=== PATIENT | female | born 1985 | race Caucasian/White ===

== ENCOUNTER → 2019-09-30 12:00 | Outpatient (BNVA) | payer MEDICAID, SELFPAY | PROVIDERS: Family Provider Family Medicine; PCP Family Medicine; Visit Provider Nurse Practitioner | DX: K12.2 Cellulitis and abscess of mouth (principal) | CPT/HCPCS: 85025 ==

== ENCOUNTER → 2020-02-18 14:19 | Outpatient (BNVA) | payer MEDICAID, SELFPAY | PROVIDERS: Family Provider Family Medicine; PCP Family Medicine; Visit Provider Nurse Practitioner Family | DX: Z11.59 Encounter for screening for other viral diseases (principal); J02.9 Acute pharyngitis, unspecified | CPT/HCPCS: 87071; 87635; 87880 ==

== ENCOUNTER 2020-05-05 14:07 | Emergency (ER) | payer MEDICAID, SELFPAY ==
[2020-05-05 14:00] VITALS: BP 113/83; PULSE 96; RESP 16; TEMP 36.9; O2SAT 100; BMI 30.1
--- NOTE | 2020-05-05 14:40 | CT_ITS ---
WS: [id number] CT HEAD NONCONTRAST HISTORY: worst headache of life, concern for SAH TECHNIQUE: Contiguous axial imaging performed through the brain in 2.5 mm imaging. Bone and soft tiss ue windows. Sagittal and coronal reformats reviewed. All CT scans at [facility] use at le ast one of these dose optimization techniques: automated exposure control; mA and/or kV adjustment pe r patient size (includes targeted exams where dose is matched to clinical indication); or iterative r econstruction. DLP: 768.77 mGy.cm COMPARISON: 08/12/2012 No acute intracranial hemorrhage, midline shift or mass effect. No atrophy or prior infarcts or herniation. Ventricles: Normal size with no hydrocephalus. Paranasal sinuses: Mild mucosal thickening in the ethmoid, sphenoid and maxillary sinuses. No air-flu id levels. Mastoid air cells: Well pneumatized. Calvarium and scalp: Skull is intact with no soft tissue edema or swelling. CT/CT head wo con* [id number] IMPRESSION: 1. No acute intracranial hemorrhage or edema. 2. Very minimal mucoperiosteal sinus disease.
[2020-05-05] MEDS: metoclopramide 5 mg/mL SDV 2 mL 10 MG IVP (14:47)
[2020-05-05] MEDS: diphenhydrAMINE 50 mg/mL SDV 1mL IVP (14:47)
[2020-05-05] MEDS: sodium chloride 0.9% 1,000 ML 999 ML IV (14:48)
[2020-05-05 14:59] VITALS: BP 123/91; PULSE 85; RESP 18; O2SAT 96
[2020-05-05 15:36] VITALS: TEMP 37
[2020-05-05] MEDS: ketorolac 30 mg/mL INJ 15 MG IVP (16:14)
--- NOTE | 2020-05-12 18:12 | W.ED.HA ---
HPI - Headache General: Chief Complaint: Headache Stated Complaint: HEADACHE AND NAUSEA History of Present Illness: HPI Narrative: Patient is a 34-year-old female seen for headache. She describes as 9 of 10, all-encompassing, throbbing, similar to prior migraines, only worse than usual. She has tried taking Tylenol at home without help. She denies neck pain, fever, pain with motion of the neck, visual disturbance, and only has mild nausea with no vomiting associated. She has no other acute complaints. Review of Systems General: Reports: 10 or more systems reviewed and unremarkable except in HPI and below PFSH ED PFSH: Medical History Chronic migraine Fibromyalgia History of deep venous thrombosis (DVT) of distal vein of right lower extremity 2012 History of kidney stones History of pulmonary embolus (PE) 2013 Surgical History History of cholecystectomy History of hysterectomy Family History Other Cancer Diabetes Heart disease Hypertension Thyroid condition Social History Smoking and tobacco status: never smoked Second hand smoke exposure: No Alcohol intake: never Desire information about alcohol rehabilitation?: No Counseling given: No Desire information about substance/drug rehabilitation?: No Counseling given: No Adopted: No Caregiver/support person: No Lives independently: Yes Household members: spouse Housing: House Marital status: Number of children: 3 service: No Current occupational status: employed Current occupation: [id number] History of recent travel: No Current gender identity: Female Physical Exam Const: COMMON NORMALS: no acute distress, patient oriented x3 and alert HENMT: COMMON NORMALS: normocephalic and atraumatic HEAD & SCALP: normocephalic and atraumatic Eye: COMMON NORMALS: Equal, round and reactive pupils present, EOMs intact bilaterally and no scleral icterus PUPIL: Yes Equal, round and reactive pupils present Neck/C-Spine: COMMON NORMALS: full ROM, no lymphadenopathy and no meningeal signs GENERAL: Yes normal visual inspection Resp: COMMON NORMALS: normal respiratory effort and No retractions Cardio: COMMON NORMALS: regular rate, regular rhythm and No murmurs present (Cardio) RATE: regular rate RHYTHM: regular rhythm GI: COMMON NORMALS: Normal to inspection, nondistended, normoactive bowel sounds present, Soft to palpation and non-tender PALPATION: Yes Soft to palpation Neuro: COMMON NORMALS: patient oriented x3 SENSORIUM/ORIENTATION: Yes alert MENINGEAL SIGNS: Yes no meningeal signs Skin: COMMON NORMALS: no rashes or lesions noted GENERAL SKIN EXAM: no rashes or lesions noted Course Vital Signs: Vital signs: Vital Signs Temperature 98.6 F 05/05/20 15:36 Pulse Rate 85 05/05/20 14:59 Respiratory Rate 18 05/05/20 14:59 Blood Pressure 123/91 05/05/20 14:59 Pulse Oximetry 96 05/05/20 14:59 MDM - Headache MDM Narrative: Medical decision making narrative: Patient remained hemodynamically stable through ED course. Headache went from a 9 to a 3 following fluids and IV medication. I do not suspect intracranial hemorrhage, meningitis, or any other emergent process warranting further work-up at this time. She was discharged home in stable and improved condition felt to primary care today. 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
== END 2020-05-05 16:32 | disposition home or self-care (01) ==
PROVIDERS: Emergency Provider Student in an Organized Health Care Education/Training Program; PCP Family Medicine
DX: R51.9 Headache, unspecified (principal); Z86.711 Personal history of pulmonary embolism
CPT/HCPCS: 12345; 70450; 96374; 96375; 99282; 99283; J1200; J1885; J2765; J7030

== ENCOUNTER → 2020-05-09 13:25 | Outpatient (BNVA) | payer MEDICAID, SELFPAY | PROVIDERS: PCP Family Medicine; Visit Provider Nurse Practitioner | DX: Z20.828 Contact with and (suspected) exposure to other viral communicable diseases (principal) | CPT/HCPCS: 87635 ==

== ENCOUNTER 2020-06-05 20:12 | Emergency (ER) | payer BC, MEDICAID, SELFPAY ==
[2020-06-05 20:30] VITALS: BP 124/82; PULSE 73; RESP 18; TEMP 36.4; O2SAT 98; BMI 28.3
--- NOTE | 2020-06-05 20:53 | W.ED.GENADLT ---
HPI - General Adult General: Chief complaint: General Medical Stated complaint: insect (spider)bite on chest Time Seen by Provider: 06/05/20 20:41 Source: patient Mode of arrival: ambulatory Limitations: no limitations History of Present Illness: HPI narrative: 34-year-old pleasant female presents to the emergency department with 1 day history of redness swelling to the right chest wall. She reports noted a spider in her bed 1 day prior to the onset of skin complaint. She questions if she has a spider bite. She reports itching, redness, swelling with burning to the area. She denies fever chills nausea vomiting. She reports has taken ibuprofen, Benadryl and Tylenol for the discomfort. Reports moved to her old home, an old farm house, 2 months ago, reports infestation of brown recluse spiders, fleas and bedbugs, has contacted [employer] who treated the home. Onset (ago): day(s) (2) Location: chest Severity: moderate Quality: burning Pain Consistency: constant Relieving factors: medication Exacerbating factors: other (When clothing touches the area) Associated symptoms: Reports rash; Deny chest pain, diaphoresis, dyspnea, headache(s), nausea, palpitations or vomiting Treatments prior to arrival: NSAID Review of Systems General: Reports: 10 or more systems reviewed and unremarkable except in HPI and below Const: Denies: fever(s), chills or diaphoresis Eyes: Denies: blurry vision or eye redness ENMT: Denies: throat pain, dental pain or disequilibrium Card: Denies: chest pain, palpitations or irregular heart rhythm Resp: Denies: dyspnea, productive cough, non-productive cough or wheezing GI: Denies: abdominal pain, nausea or vomiting : Denies: difficulty voiding or dysuria Musc: Denies: neck pain, back pain, joint pain, joint swelling or joint stiffness Skin/Breast: Reports: rash, pruritus, erythema, skin tenderness and changes in skin color Neuro: Denies: headache(s), weakness in extremities or behavioral changes Psych: Denies: anxiety or depression Gilberto/Lymph: Denies: easy bruising [facility] ED PFSH: Medical History (Updated 06/05/20 @ 22:47 by CAROLYN Spence) Chronic migraine Fibromyalgia History of deep venous thrombosis (DVT) of distal vein of right lower extremity 2012 History of kidney stones History of pulmonary embolus (PE) 2013 Surgical History History of cholecystectomy History of hysterectomy Family History Other Cancer Diabetes Heart disease Hypertension Thyroid condition Social History Smoking and tobacco status: never smoked Second hand smoke exposure: No Alcohol intake: never Desire information about alcohol rehabilitation?: No Counseling given: No Desire information about substance/drug rehabilitation?: No Counseling given: No Adopted: No Caregiver/support person: No Lives independently: Yes Household members: spouse Housing: House Marital status: Number of children: 3 service: No Current occupational status: employed Current occupation: [employer] History of recent travel: No Current gender identity: Female Physical Exam Const: COMMON NORMALS: no acute distress, patient oriented x3, healthy appearing and alert GENERAL APPEARANCE: cooperative, comfortable and well hydrated HENMT: COMMON NORMALS: normocephalic, Normal external nose present and moist oral mucous membranes HEAD & SCALP: normocephalic NOSE: Normal external nose present Eye: COMMON NORMALS: Equal, round and reactive pupils present and EOMs intact bilaterally GENERAL EYE: appearance normal, both eyes and all related structures PUPIL: Yes Equal, round and reactive pupils present Neck/C-Spine: COMMON NORMALS: full ROM and no lymphadenopathy GENERAL: Yes normal visual inspection and Yes trachea midline CERVICAL SPINE: Yes cervical ROM normal Lymph: LYMPHATIC: no lymphadenopathy noted Chest: COMMONS NORMALS: normal inspection of the chest Resp: COMMON NORMALS: normal respiratory effort, No retractions, No use of accessory muscles and clear to auscultation bilaterally EFFORT & INSPECTION: Yes able to speak in complete sentences AUSCULTATION: clear to auscultation bilaterally Cardio: COMMON NORMALS: regular rate, regular rhythm, S1 normal heart sound present, S2 normal heart sound present and Peripheral pulses 2+ throughout RATE: regular rate RHYTHM: regular rhythm HEART SOUNDS: S1 normal heart sound present and S2 normal heart sound present PERIPHERAL PULSES: Peripheral pulses 2+ throughout GI: COMMON NORMALS: Normal to inspection, nondistended, normoactive bowel sounds present, Soft to palpation and non-tender INSPECTION: Yes normal to inspection PALPATION: Yes Soft to palpation : COMMON NORMALS: Yes no CVA tenderness BLADDER/KIDNEY EXAM: Yes no CVA tenderness Back/Pelvis: COMMON NORMALS: no CVA tenderness and thoracic and lumbar spine normal to inspection Extremity: COMMON NORMALS: normal to inspection, full ROM, capillary refill normal, no clubbing, cyanosis or edema, no calf tenderness and no pedal edema GENERAL: Yes normal exam except as noted Neuro: COMMON NORMALS: patient oriented x3 and no focal motor deficits SENSORIUM/ORIENTATION: Yes alert GAIT: Yes Normal gait present MOTOR EXAM: 5/5 motor strength present throughout Psych: COMMON NORMALS: mental status grossly normal, Normal thought process present and cooperative ACTIVITY/MOTOR BEHAVIOR: Yes appropriate eye contact THOUGHT PROCESS: Normal thought process present Skin: COMMON NORMALS: no rashes or lesions noted and turgor normal SKIN IMAGES (FEMALE): 1. Puncture wound to the anterior chest wall, with slight induration 3 cm x 2.5 cm area surrounding, erythema surrounds the area 10 cm x 10 cm GENERAL SKIN EXAM: no rashes or lesions noted and turgor normal Course Vital Signs: Vital signs: Vital Signs Temperature 97.5 F L 06/05/20 20:30 Pulse Rate 87 06/05/20 21:21 Respiratory Rate 16 06/05/20 21:21 Blood Pressure 132/76 06/05/20 21:21 Pulse Oximetry 98 06/05/20 21:21 [facility] - General Adult Imaging Data^: US: Radiologist's impression: [address] [address] Ultrasound Report Signed Patient: Salima Bone Unit #: [id number] : 1985 Age/Sex: 34 / F ADM Date: 06/05/20 Loc: ER Room/Bed: Attending Dr: Ordering Provider/Ordering MD: Waleska Cedeño Date of Service: 06/05/20 Procedure(s): US soft tissue/extremity [id number] Accession Number(s): [id number] Report Number: [id number] PROCEDURE INFORMATION: Exam: US Unlisted Ultrasound Procedure Exam date and time: 06/05/2020 8:53 PM Age: 34 years old Clinical indication: Injury or trauma; Injury: Spider bite x 3 days; Patient status: Conscious; Patient HX: Redness and warmth to area around spider bite; Additional info: Spider bite superior to right breast, ? abscess. TECHNIQUE: Imaging protocol: Unlisted ultrasound procedure (eg, diagnostic, interventional). COMPARISON: No relevant prior studies available. FINDINGS: Procedural imaging: In the region of the erythema and warmth, there is no abnormal fluid collection or mass. US/US soft tissue/extremity [id number] IMPRESSION: There is no evidence for abscess or mass in the region of interest in the superior aspect of the right breast. Dictated By: Armen Bee MD Signed By: Armen Bee MD Signed Date/Time: 06/05/202219 DD/ 18 Discharge Plan Discharge Patient Disposition: Home Clinical Impression: Allergic reaction to insect bite Insect bite Qualifiers: Encounter type: initial encounter Site of insect bite: thoracic wall Front or back of thoracic wall: front Thoracic wall location detail: right Qualified Code(s): S20.361A - Insect bite (nonvenomous) of right front wall of thorax, initial encounter Cellulitis Qualifiers: Site of cellulitis: trunk Site of cellulitis of trunk: chest wall Qualified Code(s): L03.313 - Cellulitis of chest wall Condition: Stable Prescriptions: New Bactrim DS 800-160 mg tablet 1 tab PO BID 7 Days Qty: 14 RF: 0 Medrol (Haun) 4 mg tablets,dose pack See Rx Instructions .ROUTE .COMPLEX Qty: 21 RF: 0 Zyrtec 10 mg capsule 10 mg PO DAILY Qty: 10 RF: 0 Discharge Orders: Discharge ED (Routine); Ordered 06/05/20 Ordered By: Waleska Cedeño Referrals: Dannie Yeung MD [Primary Care Provider] - Discharge Diet: Usual diet Discharge Activity: Resume usual activity Patient Instructions: Allergic Reaction, Cellulitis (ED), Insect Bite or Sting (ED) Activity Restrictions/Additional Instructions: Take medication as prescribed, even if feeling better May continue Benadryl as needed for breakthrough itching Cool compresses to the area to help with warmth and swelling, never to apply ice directly to the skin Follow-up with your primary care provider in 2 days without fail for reevaluation to ensure you are improving Return to the emergency department if you develop worsening symptoms such as shortness of breath, increased pain or fever. 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
[2020-06-05 21:21] VITALS: BP 132/76; PULSE 87; RESP 16; O2SAT 98
[2020-06-05] MEDS: predniSONE 20 mg Tablet PO (21:21)
[2020-06-05] MEDS: sulfamethoxazole-trimeth DS 160-800 mg Tablet 1 TAB PO (23:09)
[2020-06-05] MEDS: cetirizine 10 mg Tablet PO (23:09)
[2020-06-05 23:10] VITALS: BP 132/85; PULSE 78; RESP 18; O2SAT 98
== END 2020-06-05 23:11 | disposition home or self-care (01) ==
PROVIDERS: Emergency Provider Nurse Practitioner Family; PCP Family Medicine
DX: S20.361A Insect bite (nonvenomous) of right front wall of thorax, initial encounter (principal); L03.313 Cellulitis of chest wall; T63.481A Toxic effect of venom of other arthropod, accidental (unintentional), initial encounter; W57.XXXA Bitten or stung by nonvenomous insect and other nonvenomous arthropods, initial encounter
CPT/HCPCS: 12345; 76882; 99281; 99283; J7512

== ENCOUNTER → 2021-04-12 15:15 | Outpatient (BNVA) | payer BC, MEDICAID, SELFPAY | PROVIDERS: PCP Family Medicine; Visit Provider Nurse Practitioner Family | DX: Z20.822 Contact with and (suspected) exposure to COVID-19 (principal) | CPT/HCPCS: 87635 ==

== ENCOUNTER → 2021-10-31 17:11 | Outpatient (BNVA) | payer BC, MEDICAID, SELFPAY | PROVIDERS: PCP Family Medicine; Visit Provider Family Medicine | DX: M79.7 Fibromyalgia (principal); R53.83 Other fatigue; R63.5 Abnormal weight gain | CPT/HCPCS: 80053; 80061; 83036; 84443; 85025 ==

== ENCOUNTER → 2022-04-27 10:03 | Outpatient (BNVA) | payer BC, MEDICAID, SELFPAY | PROVIDERS: PCP Family Medicine; Visit Provider Family Medicine | DX: R63.5 Abnormal weight gain (principal); M25.50 Pain in unspecified joint; M79.7 Fibromyalgia; G43.909 Migraine, unspecified, not intractable, without status migrainosus | CPT/HCPCS: 80053; 85025; 85651; 86038; 86431 ==

== ENCOUNTER 2022-05-12 13:12 | Emergency (ER) | payer BC, MEDICAID, SELFPAY ==
[2022-05-12 13:40] VITALS: BP 122/81; PULSE 104; RESP 18; TEMP 36.7; O2SAT 98; BMI 37.5
--- NOTE | 2022-05-12 13:50 | ED_ITS ---
HPI - Abdominal Pain General: Chief Complaint: Abdominal Pain Stated Complaint: abd pain Time Seen by Provider: 05/12/22 13:50 History of Present Illness: Ms. Wiggins is a 36-year-old lady with complex past medical history presenting to the emergency department due to left lower quadrant abdominal pain. Onset of symptoms was without known specific provoking event yesterday afternoon. She reports sudden onset of symptoms which have been constant since onset. Describes a stabbing sensation which at times worsens however has not gone away. No other associated GI symptoms. No vaginal discharge or abnormal bleeding. Patient has a history of hysterectomy. Intensity symptoms is moderate to severe. No other specific changes in health, exacerbating, or alleviating factors identified. Onset (ago): day(s) Pain Consistency: constant Location: LLQ Quality: stabbing Radiation: none Migration to: no migration Exacerbating factors: movement Relieving factors: nothing Associated Symptoms: Reports no associated symptoms Review of Systems General: Reports: 10 or more systems reviewed and unremarkable except in HPI and below PFSH ED PFSH: Medical History Chronic migraine Fibromyalgia History of deep venous thrombosis (DVT) of distal vein of right lower extremity 2012 History of kidney stones History of pulmonary embolus (PE) 2013 Surgical History History of cholecystectomy History of hysterectomy Family History Other Cancer Diabetes Heart disease Hypertension Thyroid condition Social History Smoking and tobacco status: never smoked Second hand smoke exposure: No Alcohol intake: never Desire information about alcohol rehabilitation?: No Counseling given: No Desire information about substance/drug rehabilitation?: No Counseling given: No Adopted: No Caregiver/support person: No Lives independently: Yes Household members: spouse Housing: House Marital status: Number of children: 3 service: No Current occupational status: employed Current occupation: [employer] History of recent travel: No Current gender identity: Female Physical Exam 2 Const: COMMON NORMALS: alert GENERAL APPEARANCE: cooperative and well developed HENMT: COMMON NORMALS: normocephalic and atraumatic HEAD & SCALP: normocephalic and atraumatic Eye: COMMON NORMALS: conjunctivae normal CONJUNCTIVA: Yes conjunctivae normal SCLERA: sclerae normal Neck/C-Spine: COMMON NORMALS: supple GENERAL: Yes trachea midline Resp: COMMON NORMALS: clear to auscultation bilaterally EFFORT & INSPECTION: Yes able to speak in complete sentences AUSCULTATION: clear to auscultation bilaterally Cardio: COMMON NORMALS: regular rhythm RATE: tachycardic RHYTHM: regular rhythm GI: COMMON NORMALS: Soft to palpation PALPATION: Yes Soft to palpation, Yes Tenderness to palpation present (GI) Details: LLQ, No Guarding due to palpation present (GI) and No Rigid due to palpation Extremity: GENERAL: Yes normal exam except as noted and No edema Neuro: COMMON NORMALS: moves all extremities SENSORIUM/ORIENTATION: Yes alert and No Orientation impaired Psych: COMMON NORMALS: mental status grossly normal and Normal thought process present THOUGHT PROCESS: Normal thought process present Course Vital Signs: Vital signs: Vital Signs Temperature 98.0 F 05/12/22 13:40 Pulse Rate 98 05/12/22 17:08 Respiratory Rate 16 05/12/22 17:08 Blood Pressure 139/81 05/12/22 17:08 Pulse Oximetry 99 05/12/22 17:08 Oxygen Delivery Me thod 05/12/22 16:41 MDM - Abdominal Pain Medical Decision Making 36-year-old lady presenting with abdominal symptoms. Exam as above. Though patient does appear uncomfortable there is no evidence of acute surgical abdomen on physical exam. Labs notable for minimal leukocytosis, normal hemoglobin. Metabolic panel with normal electrolytes, transaminitis of uncertain etiology. There is no right upper quadrant tenderness, Navarro's is negative. Patient does appear to have a urinary tract infection. Ultrasound notable for ovarian cysts, need for follow-up discussed with patient. Renal ultrasound without evidence of hydronephrosis. Patient moderately improved with treatment including antibiotics. Most likely etiology of symptoms is urinary tract infection. The results of ED evaluation were discussed with the patient including prescriptions and/or symptomatic cares (if applicable) including appropriate and responsible use, followup plan, and return precautions. The patient verbalized understanding and felt safe for discharge. Medical Records I reviewed the patient's medical records. Lab Data I reviewed the patient's lab results. 05/12/22 14:14 05/12/22 14:14 Labs/Radiology: Radiology Impressions Pelvis Ultrasound 05/12/22 14:58 IMPRESSION: 1. Bilateral ovarian cysts probably physiological in nature. Recommend a repeat ultrasound exam in 2-3 months for confirmation. 2. No evidence of ovarian torsion. 3. Prior hysterectomy. Renal Ultrasound 05/12/22 14:58 IMPRESSION: Unremarkable kidneys and bladder. Laboratory Results WBC 10.2 10^3/uL (4.0-10.0) H 05/12/22 14:14 RBC 4.24 10^6/uL (4.1-5.3) 05/12/22 14:14 Hgb 13.0 g/dL (11.5-15.3) 05/12/22 14:14 Hct 39.9 % (37.0-47.0) 05/12/22 14:14 MCV 94.1 fl (81-99) 05/12/22 14:14 MCH 30.7 pg (28.0-34.0) 05/12/22 14:14 MCHC 32.6 g/dL (30.0-36.0) 05/12/22 14:14 RDW 13.3 % (12.1-15.1) 05/12/22 14:14 Plt Count 325 10^3/cmm (130-400) 05/12/22 14:14 MPV 8.6 fL (7.4-10.4) 05/12/22 14:14 Neut % (Auto) 57.3 % 05/12/22 14:14 Lymph % (Auto) 29.1 % 05/12/22 14:14 [place] % (Auto) 8.7 % 05/12/22 14:14 Eos % (Auto) 3.4 % 05/12/22 14:14 Baso % (Auto) 0.6 % 05/12/22 14:14 Neut # (Auto) 5.83 10^3/uL (1.8-7.7) 05/12/22 14:14 Lymph # (Auto) 3.0 10^3/uL (0.8-4.8) 05/12/22 14:14 [place] # (Auto) 0.9 10^3/uL (0.2-0.9) 05/12/22 14:14 Eos # (Auto) 0.4 10^3/uL (0.0-0.8) 05/12/22 14:14 Baso # (Auto) 0.1 10^3/uL (0.0-0.1) 05/12/22 14:14 Nucleated RBC % (auto) 0 % 05/12/22 14:14 Nucleated RBCs # 0.0 /100WBC 05/12/22 14:14 Sodium 138 mmol/L (136-145) 05/12/22 14:14 Potassium 3.6 mmol/L (3.5-5.1) 05/12/22 14:14 Chloride 102 mmol/L (98-107) 05/12/22 14:14 Carbon Dioxide 26 mmol/L (22-29) 05/12/22 14:14 Anion Gap 13.6 (5-19) 05/12/22 14:14 BUN 4 mg/dL (6-20) L 05/12/22 14:14 Creatinine 0.5 mg/dL (0.5-0.9) 05/12/22 14:14 GFR Calculation 140.4 mL/min (90-130) H 05/12/22 14:14 Glucose 83 mg/dL (65-115) 05/12/22 14:14 Calculated Osmolality 282 mOsm/kg (285-295) L 05/12/22 14:14 Calcium 9.5 mg/dL (8.5-10.5) 05/12/22 14:14 Total Bilirubin 0.2 mg/dL (0.15-1.2) 05/12/22 14:14 AST 65 U/L (0-32) H 05/12/22 14:14 ALT 61 U/L (0-33) H 05/12/22 14:14 Alkaline Phosphatase 106 U/L (35-105) H 05/12/22 14:14 Total Protein 7.5 g/dL (6.6-8.7) 05/12/22 14:14 Albumin 4.0 g/dL (3.5-5.2) 05/12/22 14:14 Globulin 3.5 g/dL (1.3-4.6) 05/12/22 14:14 Lipase 16 U/L (13-60) 05/12/22 14:14 Urine Color Dark yellow (Yellow) 05/12/22 14:06 Urine Appearance Clear (CLEAR) 05/12/22 14:06 Urine pH 5 (5-7) 05/12/22 14:06 Ur Specific [place] 1.020 (1.005-1.030) 05/12/22 14:06 Urine Protein Trace (Negative) 05/12/22 14:06 Urine Glucose (UA) Norm (Normal) 05/12/22 14:06 Urine Ketones 1+ (Negative) H 05/12/22 14:06 Urine Blood 2+ (Negative) H 05/12/22 14:06 Urine Nitrate Positive (Negative) H 05/12/22 14:06 Urine Bilirubin Neg (Negative) 05/12/22 14:06 Urine Urobilinogen 1 mg/dL (Negative) H 05/12/22 14:06 Ur Leukocyte Esterase 2+ (Negative) H 05/12/22 14:06 Urine RBC 0-4 /hpf (0-2) H 05/12/22 14:06 Urine WBC 25-40 /hpf (0-5) H 05/12/22 14:06 Ur Squamous Epith Cells 0-4 /hpf (0-5) H 05/12/22 14:06 Amorphous Sediment Not Reportable 05/12/22 14:06 Urine Bacteria 1+ /hpf (NONE) H 05/12/22 14:06 Urine Mucus Trace /hpf 05/12/22 14:06 Discharge Plan Discharge Patient Disposition: Home Clinical Impression: UTI (urinary tract infection), Bilateral ovarian cysts, Abnormal transaminases Condition: Stable Prescriptions: New cephalexin 500 mg capsule 500 mg PO QID 10 Days Qty: 40 0RF Pyridium 100 mg tablet 100 mg PO Q8H PRN (Reason: bladder spasms) Qty: 6 0RF oxycodone 5 mg capsule 5 mg PO Q4H PRN (Reason: pain) Qty: 6 0RF No Action albuterol sulfate [ProAir HFA] 90 mcg/actuation HFA aerosol inhaler 2 puff inhalation QID PRN (Reason: shortness of breath or wheezing) Qty: 6.7 2RF budesonide-formoterol [Symbicort] 160-4.5 mcg/actuation HFA aerosol inhaler 2 puff inhalation BID Qty: 10.2 2RF Paxlovid (EUA) 150 mg x 2- 100 mg tablet See Rx Instructions PO .COMPLEX Qty: 30 0RF Rx Instructions: take TWO 150 mg tablets of nirmatrelvir with ONE 100 mg tablet of ritonavir twice daily for 5 days PO phentermine [Adipex-P] 37.5 mg tablet 37.5 mg PO DAILY Qty: 30 0RF Rx Instructions: must administer 30 minutes before or 1-2 hours after breakfast ondansetron HCl 4 mg tablet 4 mg PO Q8H PRN (Reason: nausea and vomiting) Qty: 30 0RF triamcinolone acetonide 0.1 % cream 1 applic topical BID Qty: 30 0RF Rx Instructions: large area back pregabalin [Lyrica] 75 mg capsule 75 mg PO BID Qty: 60 2RF rizatriptan [Maxalt] 10 mg tablet See Rx Instructions PO .COMPLEX Qty: 10 2RF Rx Instructions: take 1 tab at onset, may repeat 1 in 2 hours. max 2 in 24 hours. fenofibrate 160 mg tablet 160 mg PO DAILY Qty: 30 2RF triamterene-hydrochlorothiazid 37.5-25 mg capsule 1 cap PO DAILY Qty: 30 1RF Rx Instructions: Allergy to yellow dye.Needs white capsule Zyrtec 10 mg capsule 10 mg PO DAILY Qty: 10 0RF Rx Instructions: take 1 PO daily for 10 days Discharge Orders: Discharge ED (Routine); Ordered 05/12/22 Ordered By: Wallace Wallace Referrals: Dannie Yeung MD [Primary Care Provider] - Discharge Diet: Usual diet Discharge Activity: Increase activity as tolerated Patient Instructions: Ovarian Cyst (ED), Urinary Tract Infection in Women (ED), Opioid Safety Activity Restrictions/Additional Instructions: Thank you for visiting the emergency department. You were seen and evaluated for abdominal pain. The exact cause of your abdominal pain is unclear though may be related to urinary tract infection or ovarian cysts. I would expect improvement with antibiotics in the next few days. Per radiology recommendations they recommend repeat ultrasound in 3 months to ensure resolution, this can be scheduled by your primary care provider. Also you have a mild ovation in your liver enzymes, this should be evaluated by your primary care provider as well. Please return to the emergency department for worsening symptoms, fevers, nausea, vomiting, inability to tolerate medications, or anything else that you are concerned about a feel needs emergency department evaluation. Coding Level of Care Code ED Sand Cleaning Machine Operator for Gabi Fwmarshall Exam Comprehensive
[2022-05-12 13:55] VITALS: BP 139/96; PULSE 107; RESP 18; O2SAT 98
[2022-05-12 14:00] VITALS: BP 143/78; PULSE 91; RESP 16; O2SAT 97
[2022-05-12] MEDS: sodium chloride 0.9% 1,000 ML 999 ML IV (14:15)
[2022-05-12] MEDS: fentaNYL 50 mcg/mL INJ 2mL IVP (14:16)
[2022-05-12 14:23] LABS: Basophils # 0.1 10^3/uL (0.0-0.1); Basophils % 0.6 %; Eosinophils # 0.4 10^3/uL (0.0-0.8); Eosinophils % 3.4 %; Hematocrit 39.9 % (37.0-47.0); Lymphocytes % 29.1 %; Mean Corpuscular HGB Conc 32.6 g/dL (30.0-36.0); Mean Corpuscular Hemoglobin 30.7 pg (28.0-34.0); Mean Corpuscular Volume 94.1 fl (81-99); Mean Platelet Volume 8.6 fL (7.4-10.4); Monocytes # 0.9 10^3/uL (0.2-0.9); Monocytes % 8.7 %; Neutrophils # 5.83 10^3/uL (1.8-7.7); Neutrophils % 57.3 %; Nucleated Red Blood Cells % 0 %; Platelet Count 325 10^3/cmm (130-400); Red Blood Count 4.24 10^6/uL (4.1-5.3); Red Cell Distribution Width 13.3 % (12.1-15.1); White Blood Count 10.2 10^3/uL (4.0-10.0)
[2022-05-12 14:41] LABS: Alanine Aminotransferase 61 U/L (0-33); Alkaline Phosphatase 106 U/L (35-105); Anion Gap 13.6 (5-19); Aspartate Amino Transferase 65 U/L (0-32); Blood Urea Nitrogen 4 mg/dL (6-20); Calcium 9.5 mg/dL (8.5-10.5); Carbon Dioxide 26 mmol/L (22-29); Chloride 102 mmol/L (98-107); Globulin 3.5 g/dL (1.3-4.6); Glomerular Filtration Rate 140.4 mL/min (90-130); Glucose 83 mg/dL (65-115); Lipase 16 U/L (13-60); Osmolality Calculated 282 mOsm/kg (285-295); Potassium 3.6 mmol/L (3.5-5.1); Sodium 138 mmol/L (136-145); Total Bilirubin 0.2 mg/dL (0.15-1.2); Total Protein 7.5 g/dL (6.6-8.7)
[2022-05-12 14:47] LABS: Urine Appearance Clear (CLEAR); Urine Color Dark Yellow (Yellow); pH Urine 5 (5-7)
[2022-05-12 14:48] LABS: Add Urine Culture? Yes; Add Urine Microscopic? YES; Bacteria Urine 1+ /hpf; Bilirubin Urine Neg (Negative); Blood Urine 2+ (Negative); Glucose Urine UA Norm (Normal); Ketones Urine 1+ (Negative); Leukocyte Esterase Urine 2+ (Negative); Mucus Urine TRACE /hpf; Nitrate Urine Positive (Negative); Protein Urine Trace (Negative); RBC Urine 0-4 /hpf (0-2); Squamous Epithelial Cell Urine 0-4 /hpf (0-5); Urobilinogen Urine 1 mg/dL (Negative); WBC Urine 25-40 /hpf (0-5)
--- NOTE | 2022-05-12 14:58 | USR_ITS ---
PROCEDURE INFORMATION: Exam: US Retroperitoneal; Complete; Kidneys and Bladder Exam date and time: 05/12/2022 3:26 PM Age: 36 years old Clinical indication: Abdominal pain; Acute; Additional info: Llq pain, hematuria eval hydro TECHNIQUE: Imaging protocol: Real-time ultrasound of the retroperitoneum with image documentation. Complete exam focused on the kidneys and bladder. COMPARISON: CR XR acute abdomen series [id number] 05/13/2016 12:58 PM FINDINGS: Right kidney: Normal. No stones. No hydronephrosis. Left kidney: Normal. No stones. No hydronephrosis. Urinary bladder: Unremarkable. US/US renal BI* [id number] IMPRESSION: Unremarkable kidneys and bladder.
--- NOTE | 2022-05-12 14:58 | USR_ITS ---
PROCEDURE INFORMATION: Exam: US Nonobstetric Pelvis; Complete Exam date and time: 05/12/2022 3:41 PM Age: 36 years old Clinical indication: Pelvic pain; Prior surgery; Surgery date: 6+ months; Surgery type: Hysterectomy; Additional info: Llq pain, eval torsion TECHNIQUE: Imaging protocol: Transabdominal pelvic nonobstetric ultrasound. Complete exam. Real time ultrasound with image documentation. COMPARISON: US renal BI* [id number] 05/12/2022 3:26 PM FINDINGS: Uterus has been removed. There are no masses or free fluid seen in the cul-de-sac. 3.8 x 3.2 x 4.5 cm septated right ovarian cyst otherwise right ovary is unremarkable. Normal Doppler flow. No adnexal mass. 3.7 x 4.1 x 4.0 cm anechoic left ovarian cyst otherwise left ovary is unremarkable. Normal Doppler flow. No adnexal mass. US/US pelvic complete* [id number] IMPRESSION: 1. Bilateral ovarian cysts probably physiological in nature. Recommend a repeat ultrasound exam in 2-3 months for confirmation. 2. No evidence of ovarian torsion. 3. Prior hysterectomy.
[2022-05-12] MEDS: cefTRIAXone 1,000 MG in sodium chloride 0.9% (plus) 50 ML 100 MG IV (16:13)
[2022-05-12] MEDS: acetaminophen 500 mg Tablet 1000 MG PO (16:38)
[2022-05-12] MEDS: ketorolac 30 mg/mL INJ 15 MG IVP (16:39)
[2022-05-12 16:41] VITALS: BP 138/83; PULSE 90; RESP 16; O2SAT 97
[2022-05-12 17:08] VITALS: BP 139/81; PULSE 98; RESP 16; O2SAT 99
== END 2022-05-12 17:09 | disposition home or self-care (01) ==
PROVIDERS: Emergency Provider Emergency Medicine; PCP Family Medicine
DX: N39.0 Urinary tract infection, site not specified (principal); N83.202 Unspecified ovarian cyst, left side; N83.201 Unspecified ovarian cyst, right side; R74.01 Elevation of levels of liver transaminase levels; Z87.442 Personal history of urinary calculi
CPT/HCPCS: 76770; 76856; 80053; 81001; 83690; 85025; 87077; 87086; 87186; 96365; 96375; 99285; J0696; J1885; J3010; J7030

== ENCOUNTER → 2022-08-15 14:02 | Outpatient (BNVA) | payer BC, MEDICAID, SELFPAY | PROVIDERS: PCP Family Medicine; Visit Provider Internal Medicine | DX: M25.50 Pain in unspecified joint (principal); L40.9 Psoriasis, unspecified; R53.83 Other fatigue; R76.8 Other specified abnormal immunological findings in serum; Z79.899 Other long term (current) drug therapy | CPT/HCPCS: 36415; 72202; 73120; 73620; 80053; 80061; 81001; 82550; 82728; 82784; 83516; 83540; 83735; 85025; 85651; 86140; 86160; 86162; 86200; 86235; 86255; 86376; 86704; 86803; 87340 ==

== ENCOUNTER 2022-10-05 10:56 | Outpatient (CLI) | payer BC, MEDICAID, SELFPAY ==
--- NOTE | 2022-10-05 11:00 | CT_ITS ---
WS: [id number] CT HEAD TECHNIQUE: Noncontrast CT of the head obtained from the skullbase to the vertex. 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 FINDINGS: No evidence of intracranial hemorrhage or mass effect. Ventricular system and basal cisterns are perez nt. No extra-axial fluid collections. No evidence of mass or mass effect. Normal whalen-white different iation. Paranasal sinuses and mastoid air cells are well aerated. .Normal visualized soft tissues. CT/CT head wo con* [id number] IMPRESSION: 1. No evidence of intracranial hemorrhage or mass effect. 2. Normal whalen-white differentiation. 3. No acute intracranial findings.
== END 2022-10-05 10:57 | disposition home or self-care (01) ==
LOC: RAD 11:00
PROVIDERS: PCP Family Medicine; Visit Provider Internal Medicine Rheumatology
DX: G51.4 Facial myokymia (principal); R20.0 Anesthesia of skin
CPT/HCPCS: 70450

== ENCOUNTER 2022-11-18 13:13 | Emergency (ER) | payer BC, MEDICAID, SELFPAY ==
[2022-11-18 13:24] VITALS: BP 138/92; PULSE 93; RESP 16; TEMP 36.8; O2SAT 97; BMI 36.5
[2022-11-18 15:17] VITALS: BP 152/100; PULSE 98; O2SAT 98
--- NOTE | 2022-11-18 15:32 | ED_ITS ---
HPI - General Adult General: Chief complaint: General Medical Stated complaint: face swelling, Right arm, chest pain Time Seen by Provider: 11/18/22 15:31 Source: patient Mode of arrival: ambulatory Limitations: no limitations History of Present Illness: Patient presents to the emergency department today for return of multiple and various symptoms for which she has been seen and evaluated by primary care and rheumatology multiple times. I personally went back and read her office notes from rheumatology and primary care from July until now. Patient has been evaluated for autoimmune issues. They thought she might have lupus, inflammatory arthritis, sarcoidosis, MS, etc. Patient was found to be GOLD positive. Rheumatology had her on low-dose steroids and patient is also started hydroxychloroquine. Patient was getting second opinions through rheumatology most recently has seen Dr. Mendoza through [facility] in [place]. She states she had an appointment just last Saturday. She indicated she was to stop all steroids because she is scheduled to have an MRI in approximately 3 weeks. Patient reports having monthly episodes where she describes facial drooping like a Sifuentes's palsy and difficulty moving her mouth. She states her right eye is twitching. She reports feeling extremely fatigued. She complains of polyarthralgia. She has not been running fever and denies vomiting or diarrhea. Patient has high blood pressure and chart note indicates she reported facial drooping symptoms when her blood pressure was elevated. Patient recently started by systolic in addition to her metoprolol. Chart review also indicates it appears she has been tested for various other conditions including alpha gal and CT of her head last month was unremarkable for any acute findings. Review of Systems General: Reports: 10 or more systems reviewed and unremarkable except in HPI and below PFSH ED PFSH: Medical History Chronic migraine Fibromyalgia History of deep venous thrombosis (DVT) of distal vein of right lower extremity 2012 History of kidney stones History of pulmonary embolus (PE) 2013 Inflammatory arthritis Positive antinuclear antibody Surgical History History of cholecystectomy History of hysterectomy Family History Other Cancer Diabetes Heart disease Hypertension Thyroid condition Social History Smoking and tobacco status: never smoked Second hand smoke exposure: No Alcohol intake: never Desire information about alcohol rehabilitation?: No Counseling given: No Substance/Drug Use: never Desire information about substance/drug rehabilitation?: No Counseling given: No Adopted: No Caregiver/support person: No Lives independently: Yes Household members: spouse Housing: House Marital status: Number of children: 3 service: No Current occupational status: employed Current occupation: [employer] Do you think of yourself as: Straight/Heterosexual Current gender identity: Female Physical Exam Const: COMMON NORMALS: no acute distress, patient oriented x3, healthy appearing and alert HENMT: COMMON NORMALS: normocephalic, atraumatic, hearing grossly normal bilaterally, Normal external nose present and moist oral mucous membranes HEAD & SCALP: normocephalic and atraumatic NOSE: Normal external nose present OTHER: No signs of angioedema. No active facial droop. Eye: COMMON NORMALS: Equal, round and reactive pupils present, EOMs intact bilaterally and conjunctivae normal CONJUNCTIVA: Yes conjunctivae normal PUPIL: Yes Equal, round and reactive pupils present Neck/C-Spine: COMMON NORMALS: full ROM, no meningeal signs and no JVD Lymph: LYMPHATIC: no lymphadenopathy noted Resp: COMMON NORMALS: normal respiratory effort, No retractions and No use of accessory muscles Cardio: COMMON NORMALS: no JVD, regular rate and Peripheral pulses 2+ throughout RATE: regular rate PERIPHERAL PULSES: Peripheral pulses 2+ throughout : COMMON NORMALS: Yes no CVA tenderness BLADDER/KIDNEY EXAM: Yes no CVA tenderness Back/Pelvis: COMMON NORMALS: no CVA tenderness, thoraco-lumbar ROM normal and straight leg raise negative bilaterally Extremity: COMMON NORMALS: normal to inspection, full ROM, no joint enlargement and no calf tenderness GENERAL: Yes normal exam except as noted Neuro: COMMON NORMALS: patient oriented x3, CN's II-XII intact bilaterally, moves all extremities, no focal motor deficits and no sensory deficits noted SENSORIUM/ORIENTATION: Yes alert MENINGEAL SIGNS: Yes no meningeal signs SPEECH: speech normal Psych: COMMON NORMALS: mental status grossly normal, Normal thought process present, cooperative, speech normal and activity/motor behavior normal SPEECH: Yes normal speech THOUGHT PROCESS: Normal thought process present Course Vital Signs: Vital signs: Vital Signs Temperature 98.3 F 06/25/23 13:24 Pulse Rate 96 11/18/22 16:59 Respiratory Rate 16 11/18/22 13:24 Blood Pressure 149/103 11/18/22 16:59 Pulse Oximetry 96 11/18/22 16:59 Oxygen Delivery Me thod Room Air 11/18/22 13:24 MDM - General Adult Medical Decision Making Patient presents with continued chronic issues involving multiple body systems. I did do an in-depth evaluation of the patient's chart all the way back from July from both her primary care office and rheumatology. It appears she has had extensive lab work as well as higher level imaging with an MRI pending in the next couple of weeks for continued evaluation of her symptoms. Patient's symptoms today are all consistent with previous issues she has mentioned to her doctors already including reports of episodes of facial drooping- which i do not appreicate today. I appreciate no acute neurological deficits today and did consult with Dr. Wallace regarding the patient and her presentation here in the ER today. Given that the patient has had continued complaints of similar symptoms and is currently being followed by multiple specialists and primary care, Dr Wallace indicated the most likely intervention for us today would be to provide the patient steroids. However, he is aware that this would delay the patient's MRI and highly encourage me to discuss with her her wishes. 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 I did discuss with the patient treatment with stronger steroids but, she does decline at this time as she would like to have her MRI. I did offer her short course of some medi cation to help with her musculoskeletal pain which she agreed to try to help provide some comfort over the next day or 2. She indicated she will reach out to her doctor tomorrow. She verbalized her understanding and agreement to treatment plan. Differential Diagnosis Acute autoimmune flare, influenza, anemia, tickborne illness, Sifuentes's palsy Discharge Plan Discharge Patient Disposition: Home Clinical Impression: Fatigue, Positive antinuclear antibody, Essential hypertension Condition: Stable Prescriptions: No Action triamcinolone acetonide 0.1 % cream 1 applic topical BID Qty: 30 0RF Rx Instructions: large area back rizatriptan [Maxalt] 10 mg tablet See Rx Instructions PO .COMPLEX Qty: 10 2RF Rx Instructions: take 1 tab at onset, may repeat 1 in 2 hours. max 2 in 24 hours. hydroxychloroquine 200 mg tablet 200 mg PO BID Qty: 60 3RF pregabalin [Lyrica] 75 mg capsule 150 mg PO BID Qty: 60 3RF magnesium oxide 500 mg capsule 500 mg PO DAILY Qty: 7 0RF escitalopram oxalate 20 mg tablet 20 mg PO DAILY Qty: 30 1RF fenofibrate 160 mg tablet 160 mg PO DAILY Qty: 30 2RF promethazine 25 mg tablet 25 mg PO TID PRN (Reason: nausea and vomiting) Qty: 30 0RF metoprolol succinate [Toprol XL] 50 mg tablet extended release 24 hr 50 mg PO DAILY Qty: 30 1RF Rx Instructions: Take 1 tablet at bedtime prednisone 20 mg tablet See Rx Instructions PO .COMPLEX PRN (Reason: joint pain flare) Qty: 30 1RF Rx Instructions: take 1 daily for 3-7 days PRN joint pain flare PO PRN; Zyrtec 10 mg capsule 10 mg PO DAILY Qty: 10 0RF Rx Instructions: take 1 PO daily for 10 days Discharge Orders: Discharge ED (Routine); Ordered 11/18/22 Ordered By: Maria E Kaminski Referrals: Bobbi Gil MD [Primary Care Provider] - Discharge Diet: Usual diet Discharge Activity: Increase activity as tolerated Patient Instructions: Autoimmune Disease (ED) Activity Restrictions/Additional Instructions: Call your doctor first thing in the morning to discuss other options for this acute flareup. Coding Level of Care Code ED Apple Thinner for Gabi Meadows
[2022-11-18 16:07] VITALS: BP 136/96; PULSE 87; O2SAT 99
[2022-11-18 16:59] VITALS: BP 149/103; PULSE 96; O2SAT 96
== END 2022-11-18 17:00 | disposition home or self-care (01) ==
PROVIDERS: Emergency Provider Physician Assistant; PCP Family Medicine
DX: R53.83 Other fatigue (principal); I10 Essential (primary) hypertension; R76.0 Raised antibody titer
CPT/HCPCS: 99282

== ENCOUNTER 2022-12-03 06:23 | Emergency (ER) | payer BC, MEDICAID, SELFPAY ==
[2022-12-03 06:26] VITALS: BMI 37.5
[2022-12-03 06:27] VITALS: BP 153/82; PULSE 100; RESP 16; O2SAT 100
--- NOTE | 2022-12-03 06:34 | US_ITS ---
WS: [id number] US pelv w/transvag [id number] HISTORY: Pelvic pain, ovarian cyst 05/17 COMPARISON: 12/03/2022 CT. Uterus has been removed surgically. No midline mass. Minimally complex cyst in the RIGHT adnexa measures 1.9 x 2.2 x 1.9 cm. Most consistent with a small ovarian follicle. Follicle was noted also on the CT of 12/03/2022 associated with the ovarian suspenso ry ligament. There is a small amount of adjacent free fluid. LEFT ovary is not identified. US/US transvaginal [id number] IMPRESSION: 1. Small hemorrhagic follicle RIGHT adnexa. This is also noted on the CT and a ssociated with the ovarian suspension ligament. Small amount of adjacent free f luid suggest interval rupture. 2. Prior hysterectomy.
--- NOTE | 2022-12-03 06:53 | W.ED.ABDPA2 ---
HPI - Abdominal Pain General: Chief Complaint: Abdominal Pain Stated Complaint: stomach pain Time Seen by Provider: 12/03/22 06:34 Source: patient Mode of arrival: ambulatory History of Present Illness: 37-year-old female presents emergency room with complaints of abdominal/pelvic pain. She has a known history of ovarian cyst she is had a ultrasound pelvis April of last year that showed what looked to be physiologic cyst she had follow-up at another outside facility we do not have access to that. She was supposed to follow-up in December regarding this is she tells me they were considering laparoscopically to be removed. She does have a remote history of nephrolithiasis but states that this pain does not feel similar. It began after she been working on a fence at home she initially to back pain and then began to have pelvic discomfort. She had no pain radiating into her extremities. She denies dysuria urgency or frequency. She is not currently menstruating. Onset (ago): day(s) Pain Consistency: constant Location: RLQ and LLQ Quality: cramping Exacerbating factors: nothing Associated Symptoms: Denies anorexia, belching, bloating, change in bowel habits, change in stool character, chills, coffee ground emesis, constipation, GI cramping, diarrhea, dyspepsia, dysuria, excessive flatus, fever(s), heartburn, hematochezia, hematuria, hematemesis, fecal incontinence, loose stools, melena, nausea, poor appetite, syncope, vomiting and other Review of Systems Const: Denies: fever(s), chills, fatigue or malaise ENMT: Denies: throat pain, ear or mastoid pain, nasal discharge or nasal congestion Card: Denies: syncope Resp: Denies: dyspnea, productive cough or non-productive cough GI: Reports: abdominal pain; Denies: nausea, vomiting, hematemesis, coffee ground emesis, heartburn, diarrhea, constipation, bloating, GI cramping, belching, excessive flatus, fecal incontinence, change in bowel habits, change in stool character, hematochezia, melena or other : Denies: flank pain, dysuria, urinary frequency, urinary urgency or hematuria Skin/Breast: Denies: rash or pruritus PFSH ED PFSH: Medical History Chronic migraine Fibromyalgia History of deep venous thrombosis (DVT) of distal vein of right lower extremity 2012 History of kidney stones History of pulmonary embolus (PE) 2013 Inflammatory arthritis Positive antinuclear antibody Surgical History History of cholecystectomy History of hysterectomy Family History Other Cancer Diabetes Heart disease Hypertension Thyroid condition Social History Smoking and tobacco status: never smoked Second hand smoke exposure: No Alcohol intake: never Desire information about alcohol rehabilitation?: No Counseling given: No Substance/Drug Use: never Desire information about substance/drug rehabilitation?: No Counseling given: No Adopted: No Caregiver/support person: No Lives independently: Yes Household members: spouse Housing: House Marital status: Number of children: 3 service: No Current occupational status: employed Current occupation: [employer] Do you think of yourself as: Straight/Heterosexual Current gender identity: Female Physical Exam Const: GENERAL APPEARANCE: cooperative and comfortable ORIENTATION/CONSCIOUSNESS: Yes awake, Yes oriented to person, Yes oriented to place and Yes oriented to time HENMT: COMMON NORMALS: normocephalic, atraumatic and hearing grossly normal bilaterally HEAD & SCALP: normocephalic and atraumatic Resp: COMMON NORMALS: normal respiratory effort, No retractions, No use of accessory muscles and clear to auscultation bilaterally AUSCULTATION: clear to auscultation bilaterally Cardio: COMMON NORMALS: regular rate, regular rhythm and No murmurs present (Cardio) RATE: regular rate RHYTHM: regular rhythm GI: COMMON NORMALS: Soft to palpation and No hepatosplenomegaly present AUSCULTATION: Yes normoactive bowel sounds PALPATION: Yes Soft to palpation, No Tenderness to palpation present (GI), No Guarding due to palpation present (GI) and Yes No hepatosplenomegaly present Extremity: COMMON NORMALS: normal to inspection, capillary refill normal, no clubbing, cyanosis or edema, no calf tenderness and no pedal edema Neuro: SENSORIUM/ORIENTATION: Yes oriented to person, Yes oriented to place and Yes oriented to time Skin: COMMON NORMALS: no rashes or lesions noted GENERAL SKIN EXAM: no rashes or lesions noted Course Vital Signs: Vital signs: Vital Signs Pulse Rate 81 12/03/22 08:19 Respiratory Rate 16 12/03/22 06:27 Blood Pressure 133/86 12/03/22 08:19 Pulse Oximetry 99 12/03/22 08:19 Oxygen Delivery Me thod Room Air 12/03/22 06:27 MDM - Abdominal Pain Medical Decision Making Patient reports having been told she has 3 ovarian cyst were identified 1 small what looks like a follicular cyst on the right ovary otherwise unremarkable CT was unremarkable there are some fluid in the pelvis is likely that the cyst had previously been identified may have drained causing some of her pain additionally she does have mild cystitis. 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 Return if she has further problems. Medical Records I reviewed the patient's medical records. Lab Data I reviewed the patient's lab results. 12/03/22 06:36 12/03/22 06:36 Labs/Radiology: Radiology Impressions Transvaginal US 12/03/22 06:34 IMPRESSION: 1. Small hemorrhagic follicle RIGHT adnexa. This is also noted on the CT and associated with the ovarian suspension ligament. Small amount of adjacent free fluid suggest interval rupture. 2. Prior hysterectomy. Abdomen/Pelvis CT 12/03/22 07:04 IMPRESSION: 1. No acute findings. 2. Hepatic steatosis. 3. Incidental findings above. Laboratory Results WBC 18.7 10^3/uL (4.0-10.0) H 12/03/22 06:36 RBC 4.07 10^6/uL (4.1-5.3) L 12/03/22 06:36 Hgb 13.1 g/dL (11.5-15.3) 12/03/22 06:36 Hct 40.9 % (37.0-47.0) 12/03/22 06:36 MCV 100.5 fl (81-99) H 12/03/22 06:36 MCH 32.2 pg (28.0-34.0) 12/03/22 06:36 MCHC 32.0 g/dL (30.0-36.0) 12/03/22 06:36 RDW 13.2 % (12.1-15.1) 12/03/22 06:36 Plt Count 321 10^3/cmm (130-400) 12/03/22 06:36 MPV 9.0 fL (7.4-10.4) 12/03/22 06:36 Neut % (Auto) 62.4 % 12/03/22 06:36 Lymph % (Auto) 27.4 % 12/03/22 06:36 [place] % (Auto) 7.6 % 12/03/22 06:36 Eos % (Auto) 1.0 % 12/03/22 06:36 Baso % (Auto) 0.3 % 12/03/22 06:36 Neut # (Auto) 11.67 10^3/uL (1.8-7.7) H 12/03/22 06:36 Lymph # (Auto) 5.1 10^3/uL (0.8-4.8) H 12/03/22 06:36 [place] # (Auto) 1.4 10^3/uL (0.2-0.9) H 12/03/22 06:36 Eos # (Auto) 0.2 10^3/uL (0.0-0.8) 12/03/22 06:36 Baso # (Auto) 0.1 10^3/uL (0.0-0.1) 12/03/22 06:36 Nucleated RBC % (auto) 0 % 12/03/22 06:36 Nucleated RBCs # 0.0 /100WBC 12/03/22 06:36 Sodium 137 mmol/L (136-145) 12/03/22 06:36 Potassium 3.5 mmol/L (3.5-5.1) 12/03/22 06:36 Chloride 98 mmol/L (98-107) 12/03/22 06:36 Carbon Dioxide 29 mmol/L (22-29) 12/03/22 06:36 Anion Gap 13.5 (5-19) 12/03/22 06:36 BUN 10 mg/dL (6-20) 12/03/22 06:36 Creatinine 0.6 mg/dL (0.5-0.9) 12/03/22 06:36 GFR Calculation 113.1 mL/min (90-130) 12/03/22 06:36 Glucose 89 mg/dL (65-115) 12/03/22 06:36 Calculated Osmolality 283 mOsm/kg (285-295) L 12/03/22 06:36 Calcium 9.8 mg/dL (8.5-10.5) 12/03/22 06:36 Total Bilirubin 0.2 mg/dL (0.15-1.2) 12/03/22 06:36 AST 14 U/L (0-32) 12/03/22 06:36 ALT 14 U/L (0-33) 12/03/22 06:36 Alkaline Phosphatase 86 U/L (35-105) 12/03/22 06:36 Total Protein 7.3 g/dL (6.6-8.7) 12/03/22 06:36 Albumin 4.1 g/dL (3.5-5.2) 12/03/22 06:36 Globulin 3.2 g/dL (1.3-4.6) 12/03/22 06:36 HCG, Qual Negative (Negative) 12/03/22 06:36 Urine Color Yellow (Yellow) 12/03/22 07:44 Urine Appearance Sl hazy (CLEAR) A 12/03/22 07:44 Urine pH 5 (5-7) 12/03/22 07:44 Ur Specific Orange 1.020 (1.005-1.030) 12/03/22 07:44 Urine Protein Neg (Negative) 12/03/22 07:44 Urine Glucose (UA) Norm (Normal) 12/03/22 07:44 Urine Ketones Negative (Negative) 12/03/22 07:44 Urine Blood 2+ (Negative) H 12/03/22 07:44 Urine Nitrate Positive (Negative) H 12/03/22 07:44 Urine Bilirubin Neg (Negative) 12/03/22 07:44 Urine Urobilinogen Norm mg/dL (Negative) 12/03/22 07:44 Ur Leukocyte Esterase Trace (Negative) H 12/03/22 07:44 Urine RBC 5-10 /hpf (0-2) H 12/03/22 07:44 Urine WBC 15-25 /hpf (0-5) H 12/03/22 07:44 Ur Squamous Epith Cells 0-4 /hpf (0-5) H 12/03/22 07:44 Amorphous Sediment Not Reportable 12/03/22 07:44 Urine Bacteria 3+ /hpf (NONE) H 12/03/22 07:44 Discharge Plan Discharge Patient Disposition: Home Clinical Impression: Ovarian cyst, Cystitis Condition: Stable Prescriptions: New Macrobid 100 mg capsule 100 mg PO BID 7 Days Qty: 14 0RF Rx Instructions: must administer with a meal/food tramadol 50 mg tablet 50 mg PO Q6H PRN (Reason: pain) Qty: 14 0RF No Action triamcinolone acetonide 0.1 % cream 1 applic topical BID Qty: 30 0RF Rx Instructions: large area back rizatriptan [Maxalt] 10 mg tablet See Rx Instructions PO .COMPLEX Qty: 10 2RF Rx Instructions: take 1 tab at onset, may repeat 1 in 2 hours. max 2 in 24 hours. hydroxychloroquine 200 mg tablet 200 mg PO BID Qty: 60 3RF pregabalin [Lyrica] 75 mg capsule 150 mg PO BID Qty: 60 3RF magnesium oxide 500 mg capsule 500 mg PO DAILY Qty: 7 0RF escitalopram oxalate 20 mg tablet 20 mg PO DAILY Qty: 30 1RF fenofibrate 160 mg tablet 160 mg PO DAILY Qty: 30 2RF promethazine 25 mg tablet 25 mg PO TID PRN (Reason: nausea and vomiting) Qty: 30 0RF metoprolol succinate [Toprol XL] 50 mg tablet extended release 24 hr 50 mg PO DAILY Qty: 30 1RF Rx Instructions: Take 1 tablet at bedtime prednisone 20 mg tablet See Rx Instructions PO .COMPLEX PRN (Reason: joint pain flare) Qty: 30 1RF Rx Instructions: take 1 daily for 3-7 days PRN joint pain flare PO PRN; Zyrtec 10 mg capsule 10 mg PO DAILY Qty: 10 0RF Rx Instructions: take 1 PO daily for 10 days Discharge Orders: Discharge ED (Routine); Ordered 12/03/22 Ordered By: Monroe Abreu Referrals: Bobbi Gil MD [Primary Care Provider] - Discharge Diet: Usual diet Discharge Activity: Increase activity as tolerated Patient Instructions: Ovarian Cyst (ED), Urinary Tract Infection in Women (ED), Opioid Safety, Pain Management Coding Level of Care Code 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
[2022-12-03 06:54] LABS: Basophils # 0.1 10^3/uL (0.0-0.1); Basophils % 0.3 %; Eosinophils # 0.2 10^3/uL (0.0-0.8); Hematocrit 40.9 % (37.0-47.0); Hemoglobin 13.1 g/dL (11.5-15.3); Lymphocytes # 5.1 10^3/uL (0.8-4.8); Lymphocytes % 27.4 %; Mean Corpuscular Hemoglobin 32.2 pg (28.0-34.0); Mean Corpuscular Volume 100.5 fl (81-99); Monocytes # 1.4 10^3/uL (0.2-0.9); Monocytes % 7.6 %; Neutrophils # 11.67 10^3/uL (1.8-7.7); Neutrophils % 62.4 %; Nucleated Red Blood Cells % 0 %; Platelet Count 321 10^3/cmm (130-400); Red Blood Count 4.07 10^6/uL (4.1-5.3); Red Cell Distribution Width 13.2 % (12.1-15.1); White Blood Count 18.7 10^3/uL (4.0-10.0)
[2022-12-03] MEDS: ketorolac 30 mg/mL INJ IVP (07:04)
[2022-12-03] MEDS: ondansetron 2 mg/ML SDV 2 mL 4 MG IVP (07:04)
--- NOTE | 2022-12-03 07:04 | CTR_ITS ---
PROCEDURE INFORMATION: Exam: CT Abdomen And Pelvis Without Contrast Exam date and time: 12/03/2022 7:27 AM Age: 37 years old Clinical indication: Abdominal pain; Localized; Lower; Prior surgery; Surgery date: 6+ months; Surgery type: Partial hysterectomy TECHNIQUE: Imaging protocol: Computed tomography of the abdomen and pelvis without contrast. Radiation optimization: All CT scans at this facility use at least one of these dose optimization techniques: automated exposure control; mA and/or kV adjustment per patient size (includes targeted exams where dose is matched to clinical indication); or iterative reconstruction. REPORTING DATA: Count of CT and Cardiac NM exams in prior 12 months: This patient has received [address] and 0 known cardiac nuclear medicine studies in the 12 months prior to the current study. COMPARISON: CR XR acute abdomen series [id number] 05/13/2016 12:58 PM RADIATION DOSE METRICS: Total DLP (mGy-cm): 985.89 FINDINGS: Lungs: Lung bases are clear. Liver: There is diffuse low-attenuation of the liver relative to the spleen consistent with fatty infiltration. There is no focal liver abnormality. Gallbladder and bile ducts: The gallbladder is absent. There is no intrahepatic or extrahepatic bile duct dilation. Pancreas: The pancreas is unremarkable. Spleen: The spleen is unremarkable. Adrenal glands: The adrenal glands are unremarkable. Kidneys and ureters: Nonobstructive 7 mm stone at the lower pole of the left kidney. There is no hydronephrosis or ureteral dilation. The right kidney and ureter are unremarkable. Stomach and bowel: The stomach is decompressed, preventing meaningful evaluation of wall thickness. The small bowel is nondilated. The colon is unremarkable. Appendix: The appendix is normal. Intraperitoneal space: There is no free air or significant intraperitoneal free fluid. Vasculature: The aorta is unremarkable. There is no aneurysm. Lymph nodes: There is no lymphadenopathy in the retroperitoneum, mesentery, pelvis or inguinal regions. Urinary bladder: The urinary bladder is unremarkable. Reproductive: The uterus is absent. There is no adnexal mass or large cyst. Bones/joints: Bones are unremarkable. Soft tissues: The abdominal wall is intact. CT/CT abdomen pelvis wo con [id number] IMPRESSION: 1. No acute findings. 2. Hepatic steatosis. 3. Incidental findings above.
[2022-12-03 07:05] LABS: HCG, Serum Qual Negative (Negative)
[2022-12-03] MEDS: sodium chloride 0.9% 1,000 ML 999 ML IV (07:05)
[2022-12-03 07:10] VITALS: BP 122/102; PULSE 87; O2SAT 98
[2022-12-03 07:13] LABS: Alanine Aminotransferase 14 U/L (0-33); Albumin Level 4.1 g/dL (3.5-5.2); Alkaline Phosphatase 86 U/L (35-105); Anion Gap 13.5 (5-19); Aspartate Amino Transferase 14 U/L (0-32); Blood Urea Nitrogen 10 mg/dL (6-20); Calcium 9.8 mg/dL (8.5-10.5); Carbon Dioxide 29 mmol/L (22-29); Chloride 98 mmol/L (98-107); Globulin 3.2 g/dL (1.3-4.6); Glomerular Filtration Rate 113.1 mL/min (90-130); Glucose 89 mg/dL (65-115); Osmolality Calculated 283 mOsm/kg (285-295); Potassium 3.5 mmol/L (3.5-5.1); Sodium 137 mmol/L (136-145); Total Bilirubin 0.2 mg/dL (0.15-1.2); Total Protein 7.3 g/dL (6.6-8.7)
[2022-12-03 08:19] VITALS: BP 133/86; PULSE 81; O2SAT 99
[2022-12-03 08:22] LABS: Add Urine Culture? Yes; Add Urine Microscopic? YES; Bacteria Urine 3+ /hpf; Bilirubin Urine Neg (Negative); Blood Urine 2+ (Negative); Glucose Urine UA Norm (Normal); Ketones Urine Negative (Negative); Leukocyte Esterase Urine Trace (Negative); Nitrate Urine Positive (Negative); Protein Urine Neg (Negative); Squamous Epithelial Cell Urine 0-4 /hpf (0-5); Urine Appearance SL Hazy (CLEAR); Urine Color Yellow (Yellow); Urobilinogen Urine Norm (Negative); WBC Urine 15-25 /hpf (0-5); pH Urine 5 (5-7)
[2022-12-03 09:03] VITALS: BP 132/79; PULSE 85; O2SAT 99
== END 2022-12-03 09:07 | disposition home or self-care (01) ==
PROVIDERS: Emergency Provider Family Medicine; PCP Family Medicine
DX: N83.201 Unspecified ovarian cyst, right side (principal); N30.90 Cystitis, unspecified without hematuria; Z79.899 Other long term (current) drug therapy
CPT/HCPCS: 74176; 76830; 76856; 80053; 81001; 84703; 85025; 87077; 87086; 87186; 96374; 96375; 99285; J1885; J2405; J7030

== ENCOUNTER → 2022-12-10 11:32 | Outpatient (BNVA) | payer BC, MEDICAID, SELFPAY | PROVIDERS: PCP Family Medicine; Visit Provider Nurse Practitioner Family | DX: R10.2 Pelvic and perineal pain (principal); Z79.899 Other long term (current) drug therapy | CPT/HCPCS: 85025 ==

== ENCOUNTER → 2022-12-21 12:03 | Outpatient (BNVA) | payer BC, MEDICAID, SELFPAY | PROVIDERS: PCP Family Medicine; Visit Provider Family Medicine | DX: R76.8 Other specified abnormal immunological findings in serum (principal); R22.0 Localized swelling, mass and lump, head; I10 Essential (primary) hypertension | CPT/HCPCS: 80053 ==

== ENCOUNTER 2023-02-01 11:23 | Outpatient (CLI) | payer BC, MEDICAID, SELFPAY ==
--- NOTE | 2023-02-01 11:45 | US_ITS ---
WS: [id number] ULTRASOUND SOFT TISSUES posterior occiput. HISTORY: R22.0 - Localized swelling, mass and lump, head COMPARISON: None available. TECHNIQUE: 2-D and color Doppler imaging is submitted. Increased subcu soft tissue and fat along the posterior occipital region. There is no mass or increas ed vascularity. IMPRESSION: Negative ultrasound prominent occipital region.
== END 2023-02-01 11:24 | disposition home or self-care (01) ==
LOC: RAD 11:26
PROVIDERS: PCP Family Medicine; Visit Provider Nurse Practitioner Family
DX: L98.8 Other specified disorders of the skin and subcutaneous tissue (principal); R22.0 Localized swelling, mass and lump, head
CPT/HCPCS: 76536

== ENCOUNTER → 2023-03-12 13:07 | Outpatient (BNVA) | payer BC, MEDICAID, SELFPAY | PROVIDERS: PCP Family Medicine; Visit Provider Family Medicine | DX: Z01.818 Encounter for other preprocedural examination (principal) | CPT/HCPCS: 80048; 85025; 86850; 86900 ==

== ENCOUNTER 2023-03-18 22:48 | Emergency (ER) | payer OTHER, BC, MEDICAID, SELFPAY ==
[2023-03-18 22:55] VITALS: BP 157/104; PULSE 127; RESP 18; TEMP 36.8; O2SAT 98; BMI 37.2
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
[2023-03-18] MEDS: lidocaine 4% cream 5 gm 1 APPLIC TOPICAL (23:49)
[2023-03-18] MEDS: HYDROcodone-acetaminophen 7.5-325 mg Tablet 1 TAB PO (23:49)
[2023-03-19 00:20] VITALS: BP 157/104; PULSE 127; RESP 18; TEMP 36.8; O2SAT 98
== END 2023-03-19 00:23 | disposition home or self-care (01) ==
PROVIDERS: Emergency Provider Nurse Practitioner Family; PCP Family Medicine
DX: S30.811A Abrasion of abdominal wall, initial encounter (principal); S16.1XXA Strain of muscle, fascia and tendon at neck level, initial encounter; N20.0 Calculus of kidney; Z87.442 Personal history of urinary calculi; V40.5XXA Car driver injured in collision with pedestrian or animal in traffic accident, initial encounter
CPT/HCPCS: 70450; 71250; 72125; 74176; 99284

== ENCOUNTER → 2023-10-02 12:26 | Outpatient (BNVA) | payer BC, MEDICAID, SELFPAY | PROVIDERS: PCP Family Medicine; Visit Provider Family Medicine | DX: R76.8 Other specified abnormal immunological findings in serum (principal); R53.83 Other fatigue; I10 Essential (primary) hypertension | CPT/HCPCS: 80053; 80061; 82306; 82607; 83520; 84443; 85025; 86003; 86008 ==

== ENCOUNTER → 2023-12-20 10:48 | Outpatient (BNVA) | payer BC, MEDICAID, SELFPAY | PROVIDERS: PCP Family Medicine; Visit Provider Nurse Practitioner Family | DX: R50.9 Fever, unspecified (principal); J02.9 Acute pharyngitis, unspecified; J06.9 Acute upper respiratory infection, unspecified | CPT/HCPCS: 87071; 87426; 87880 ==

== ENCOUNTER → 2024-06-22 15:27 | Outpatient (BNVA) | payer BC, MEDICAID, SELFPAY | PROVIDERS: PCP Family Medicine; Visit Provider Clinical Nurse Specialist Adult Health | DX: J06.9 Acute upper respiratory infection, unspecified (principal); J02.9 Acute pharyngitis, unspecified; J10.1 Influenza due to other identified influenza virus with other respiratory manifestations | CPT/HCPCS: 87071; 87400; 87426; 87880 ==

== ENCOUNTER 2025-05-07 08:54 | Emergency (ER) | payer SELFPAY ==
--- NOTE | 2025-05-07 08:56 | XR_ITS ---
WS: [id number] XR chest 1V portable [id number] REASON FOR EXAM: Shortness of breath FINDINGS: Normal aorta. Heart at the upper limits of normal in size. Calcified granulomatous disease bilaterally. No acute pulmonary parenchymal or pleural abnormality. No significant abnormality of the bony thorax. XR/XR chest 1V portable [id number] IMPRESSION: No acute chest abnormality.
[2025-05-07 09:10] VITALS: BP 154/87; PULSE 91; RESP 17; TEMP 36.9; O2SAT 99; BMI 36.6
--- NOTE | 2025-05-07 09:22 | W.ED.URI ---
HPI - URI/Sore Throat General: Chief Complaint: Upper Respiratory Infection Stated Complaint: high pulse, low oxygen, sob, fever, cough, wheezin Time Seen by Provider: 05/07/25 09:19 History of Present Illness: 39-year-old female with no significant past medical history who presents emergency room with upper respiratory symptoms. She said she been a little bit tachycardic. She said her oxygen was low at home although was 99% on room air here. She says she has been having fevers. Afebrile here. Shortness of breath. Cough. Wheeze. Related Data Previous Rx's ?Medication ?Instructions ?Recorded prednisone 20 mg tablet See Rx Instructions PO .COMPLEX 11/13/22 PRN joint pain flare #30 tabs oseltamivir 75 mg capsule (Tamiflu) 75 mg PO BID 5 days #10 caps 06/22/24 dexamethasone 6 mg tablet 6 mg PO DAILY 5 days #5 tabs 05/07/25 doxycycline hyclate 100 mg capsule 100 mg PO BID 7 days #14 caps 05/07/25 Allergies Allergy/AdvReac Type Severity Reaction Status Date / Time acetaminophen (From Allergy Unknown Unknown Verified 05/07/25 09:18 Tylenol-Codeine) codeine Allergy Unknown Unknown Verified 05/07/25 09:18 metronidazole (From Flagyl) Allergy Unknown Unknown Verified 05/07/25 09:18 morphine Allergy Unknown Unknown Verified 05/07/25 09:18 yellow dye Allergy ALGY-Hives Verified 05/07/25 09:18 Review of Systems Narrative: Constitutional symptoms: Negative except as documented in HPI. Skin symptoms: Negative except as documented in HPI. Eye symptoms: Negative except as documented in HPI. ENMT symptoms: Negative except as documented in HPI. Respiratory symptoms: Negative except as documented in HPI. Cardiovascular symptoms: Negative except as documented in HPI. Gastrointestinal symptoms: Negative except as documented in HPI. Genitourinary symptoms: Negative except as documented in HPI. Musculoskeletal symptoms: Negative except as documented in HPI. Neurologic symptoms: Negative except as documented in HPI. Psychiatric symptoms: Negative except as documented in HPI. Endocrine symptoms: Negative except as documented in HPI. [facility] ED PFSH: Medical History (Updated 05/07/25 @ 10:13 by Calli Salas MD) Facial swelling Seronegative rheumatoid arthritis of both hands Inflammatory arthritis Positive antinuclear antibody Chronic migraine Fibromyalgia History of deep venous thrombosis (DVT) of distal vein of right lower extremity 2012 History of pulmonary embolus (PE) 2013 History of kidney stones Surgical History History of cholecystectomy History of hysterectomy Family History Other Cancer Diabetes Heart disease Hypertension Thyroid disease Social History Smoking and tobacco/nicotine status: current every day tobacco/nicotine user Second hand smoke exposure: No Alcohol intake: never Substance/Drug Use: never Adopted: No Caregiver/support person: No Lives independently: Yes Household members: spouse Housing: House Marital status: Number of children: 3 service: No Current occupational status: employed Current occupation: [employer] Do you think of yourself as: Straight/Heterosexual Current gender identity: Female Physical Exam Narrative: EXAM NARRATIVE: General: Alert, no acute distress. Skin: Warm, dry. Head: Normocephalic, atraumatic. Neck: Supple, trachea midline. Eye: Extraocular movements are intact. Ears, nose, mouth and throat: mucosa moist. Cardiovascular: Regular, Normal peripheral perfusion. Respiratory: Lungs are clear to auscultation, respirations are non-labored, breath sounds are equal, Symmetrical chest wall expansion. Gastrointestinal: Soft, Nontender, Non distended Musculoskeletal: Normal ROM, no deformity. Neurological: Alert and oriented, No focal neurological deficit observed. Psychiatric: Cooperative, appropriate mood & affect. Course Vital Signs: Vital signs: Vital Signs Temperature 98.4 F 05/07/25 09:10 Pulse Rate 95 05/07/25 10:28 Respiratory Rate 18 05/07/25 09:30 Blood Pressure 136/74 05/07/25 10:28 Pulse Oximetry 93 05/07/25 10:28 Oxygen Delivery Me thod Room Air 05/07/25 10:01 MDM - URI/Sore Throat Medical Decision Making Medical decision making Patient's reason for coming to the emergency room: Upper respiratory symptoms Social determinants: Patient is employed I reviewed the patient's medical record. Patient was last seen in May of this year and family practice and diagnosed with the flu. I reviewed the patient's current home meds No chronic medications Alternate historians: None Differential diagnosis for patient with shortness of breath includes but is not limited to and based on the above HPI, review of systems and physical exam: Pneumonia. Bronchitis. Asthma or COPD with acute exacerbation. Acute coronary syndrome / CO. Pulmonary embolism. Anxiety. Congestive heart failure. Viral infections including influenza and Covid-19. Atrial fibrillation. Anxiety. Pleural effusion. Pneumothorax. Orders placed to evaluate differential diagnosis based on the above differential, HPI and physical exam Chest x-ray: No acute process. No infiltrate. No pneumothorax. This was reviewed and interpreted by myself the emergency room physician. I also reviewed the radiology report. Lab Review: Laboratory results were reviewed and interpreted by myself the emergency room physician. No leukocytosis. No anemia. No renal failure. Flu COVID and RSV are negative. Mild elevation in CRP Assessment of risk: Level of risk: Low risk patient. Hospitalization considerations: No indications for hospitalization Reexamination: Patient remained stable. No increased work of breathing. No altered mental status. No focal motor deficits. No increased work of breathing. No oxygen requirements. Assessment and plan: Upper respiratory infection - Discharged home - Discussed plan with patient. Answered any questions. - Evaluation and treatment of this problem were appropriate in the emergency setting. Lab Data 05/07/25 09:20 05/07/25 09:20 Radiology Impressions Chest X-Ray 05/07/25 08:56 IMPRESSION: No acute chest abnormality. Laboratory Results WBC 10.49 10^3/uL (3.29-11.43) 05/07/25 09:20 RBC 4.47 10^6/uL (3.85-5.65) 05/07/25 09:20 Hgb 14.10 g/dL (11.27-16.99) 05/07/25 09:20 Hct 43.1 % (36-47) 05/07/25 09:20 MCV 96.4 fl (85-98) 05/07/25 09:20 MCH 31.5 pg (27-33) 05/07/25 09:20 MCHC 32.7 g/dL (30-55) 05/07/25 09:20 RDW 14.2 % (12.1-15.1) 05/07/25 09:20 Plt Count 322 10^3/cmm (157-399) 05/07/25 09:20 MPV 8.7 fL (7.4-10.4) 05/07/25 09:20 Neut % (Auto) 74.5 % 05/07/25 09:20 Lymph % (Auto) 14.2 % 05/07/25 09:20 [place] % (Auto) 7.8 % 05/07/25 09:20 Eos % (Auto) 2.7 % 05/07/25 09:20 Baso % (Auto) 0.4 % 05/07/25 09:20 Neut # (Auto) 7.82 10^3/uL (1.8-7.7) H 05/07/25 09:20 Lymph # (Auto) 1.5 10^3/uL (0.8-4.8) 05/07/25 09:20 [place] # (Auto) 0.8 10^3/uL (0.2-0.9) 05/07/25 09:20 Eos # (Auto) 0.3 10^3/uL (0.0-0.8) 05/07/25 09:20 Baso # (Auto) 0.0 10^3/uL (0.0-0.1) 05/07/25 09:20 Nucleated RBC % (auto) 0 % 05/07/25 09:20 Nucleated RBCs # 0.0 /100WBC 05/07/25 09:20 Sodium 136 mmol/L (136-145) 05/07/25 09:20 Potassium 4.2 mmol/L (3.5-5.1) 05/07/25 09:20 Chloride 99 mmol/L (98-107) 05/07/25 09:20 Carbon Dioxide 28 mmol/L (22-29) 05/07/25 09:20 Anion Gap 13.2 (5-19) 05/07/25 09:20 BUN 5 mg/dL (6-20) L 05/07/25 09:20 Creatinine 0.5 mg/dL (0.5-0.9) 05/07/25 09:20 GFR Calculation 138.1 mL/min (90-130) H 05/07/25 09:20 Glucose 113 mg/dL (65-115) 05/07/25 09:20 Calculated Osmolality 280 mOsm/kg (285-295) L 05/07/25 09:20 Lactic Acid 1.3 mmol/L (0.5-2.2) 05/07/25 09:20 Calcium 9.8 mg/dL (8.5-10.5) 05/07/25 09:20 Total Bilirubin 0.6 mg/dL (0.15-1.2) 05/07/25 09:20 AST 25 U/L (0-32) 05/07/25 09:20 ALT 23 U/L (0-33) 05/07/25 09:20 Alkaline Phosphatase 103 U/L (35-105) 05/07/25 09:20 C-Reactive Protein 20.3 mg/L (0.0-4.9) H 05/07/25 09:20 Total Protein 7.9 g/dL (6.6-8.7) 05/07/25 09:20 Albumin 4.3 g/dL (3.5-5.2) 05/07/25 09:20 Globulin 3.6 g/dL (1.3-4.6) 05/07/25 09:20 Procalcitonin 0.24 ng/mL (0-0.5) 05/07/25 09:20 Influenza A (PCR) Negative (Negative) 05/07/25 09:26 Influenza Type B (PCR) Negative (Negative) 05/07/25 09:26 RSV (PCR) Negative (Negative) 05/07/25 09:26 SARS-CoV-2 (PCR) Negative (Negative) 05/07/25 09:26 All radiology interpretation(s) finalized by discharge Discharge Plan Discharge Patient Disposition: Home Clinical Impression: Upper respiratory infection Condition: Stable Prescriptions: New doxycycline hyclate 100 mg capsule 100 mg PO BID 7 Days Qty: 14 0RF dexamethasone 6 mg tablet 6 mg PO DAILY 5 Days Qty: 5 0RF No Action oseltamivir [Tamiflu] 75 mg capsule 75 mg PO BID 5 Days Qty: 10 0RF prednisone 20 mg tablet See Rx Instructions PO .COMPLEX PRN (Reason: joint pain flare) Qty: 30 1RF Rx Instructions: take 1 daily for 3-7 days PRN joint pain flare PO PRN; Discharge Orders: Discharge ED (Routine); Ordered 05/07/25 Ordered By: Calli Salas Referrals: Bobbi Gil MD [Primary Care Provider, Family Practice] Patient Instructions: Upper Respiratory Infection (ED), Opioid Safety, Pain Management, Patient Portal & [place] Instructions Activity Restrictions/Additional Instructions: [email or web address]. You have been screened and evaluated and felt safe for discharge. Health conditions do change or evolve sometimes and as such it is important that you follow up with your Primary Doctor to be re checked, 3-5 days is a general good time frame for follow up. You are always welcome to return to the ED for re assessment if your symptoms are worsening or you have new concerns Stand Alone Forms: Work/School Release Print Language: Bots[place]an Coding Level of Care Code ED Unit Aid for [place]
[2025-05-07 09:30] VITALS: BP 164/105; RESP 18; O2SAT 96
[2025-05-07 09:34] LABS: Hematocrit 43.1 % (36-47); Hemoglobin 14.10 g/dL (11.27-16.99); Mean Corpuscular HGB Conc 32.7 g/dL (30-55); Mean Corpuscular Hemoglobin 31.5 pg (27-33); Mean Corpuscular Volume 96.4 fl (85-98); Nucleated Red Blood Cells % 0 %; Platelet Count 322 10^3/cmm (157-399); Red Blood Count 4.47 10^6/uL (3.85-5.65); White Blood Count 10.49 10^3/uL (3.29-11.43)
[2025-05-07 09:56] LABS: Alanine Aminotransferase 23 U/L (0-33); Albumin Level 4.3 g/dL (3.5-5.2); Alkaline Phosphatase 103 U/L (35-105); Anion Gap 13.2 (5-19); Aspartate Amino Transferase 25 U/L (0-32); Blood Urea Nitrogen 5 mg/dL (6-20); Calcium 9.8 mg/dL (8.5-10.5); Carbon Dioxide 28 mmol/L (22-29); Chloride 99 mmol/L (98-107); Globulin 3.6 g/dL (1.3-4.6); Glucose 113 mg/dL (65-115); Osmolality Calculated 280 mOsm/kg (285-295); Potassium 4.2 mmol/L (3.5-5.1); Sodium 136 mmol/L (136-145); Total Protein 7.9 g/dL (6.6-8.7)
[2025-05-07 10:01] VITALS: BP 120/71; PULSE 88; O2SAT 92
[2025-05-07 10:02] LABS: Procalcitonin 0.24 ng/mL (0-0.5)
[2025-05-07 10:12] LABS: Respiratory Syncytial Virus Ce NEGATIVE (Negative); SARS-CoV-2 PCR NEGATIVE (Negative)
[2025-05-07 10:17] LABS: Lactic Sepsis W/Reflex 1.3 mmol/L (0.5-2.2)
[2025-05-07 10:28] VITALS: BP 136/74; PULSE 95; O2SAT 93
== END 2025-05-07 10:30 | disposition home or self-care (01) ==
PROVIDERS: Emergency Provider Emergency Medicine; PCP Family Medicine
DX: J06.9 Acute upper respiratory infection, unspecified (principal); Z11.52 Encounter for screening for COVID-19; Z72.0 Tobacco use
CPT/HCPCS: 36415; 71045; 80053; 83605; 84145; 85025; 86140; 87040; 87637; 99284